=== PATIENT | male | born 1990 | race Caucasian/White ===

== ENCOUNTER 2017-01-31 22:14 | Emergency (ER) | payer MEDICAID ==
[2017-01-31] MEDS ORDERED: IBUPROFEN 600 MG TABLET PO ONE (22:54)
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
== END 2017-01-31 23:40 | disposition home or self-care (01) ==
LOC: ER 22:14
DX: S00.81XA Abrasion of other part of head, initial encounter (principal); G89.11 Acute pain due to trauma; M25.562 Pain in left knee; R51 Headache; W19.XXXA Unspecified fall, initial encounter; Y92.410 Unspecified street and highway as the place of occurrence of the external cause
CPT/HCPCS: 99283

== ENCOUNTER 2018-04-01 04:55 | Emergency (ER) | payer MEDICAID ==
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
== END 2018-04-01 05:27 | disposition home or self-care (01) ==
LOC: ER 04:55
DX: Z04.1 Encounter for examination and observation following transport accident (principal); F10.920 Alcohol use, unspecified with intoxication, uncomplicated; V47.5XXA Car driver injured in collision with fixed or stationary object in traffic accident, initial encounter; Y92.410 Unspecified street and highway as the place of occurrence of the external cause
CPT/HCPCS: 99282